=== PATIENT | male | born 1935 | race Caucasian/White ===

== ENCOUNTER 2016-06-30 13:30 | Emergency (ER) | payer MEDICARE, OTHER ==
[2016-06-30 13:43] VITALS: BP 137/57
--- NOTE | 2016-06-30 14:03 | ED ---
Kenny Chung Janilya, scribed for Kenia Ogden MD on 06/30/16 at 1403 . Progress - Progress Note Progress Note: A 80 y/o male came in to [facility] c/o possible stroke. Pt states he was delirious and clammy. In addition, he states he had a vertigo and heaviness on chest last night. Pt states he feels completely normal today. PMHx PE, HTN, hyperlipidemia. PE: normal NIH stroke scale: 0 Please see note from Jonathan which also reports some expressive aphasia Course/Dx - Diagnoses Provider Diagnoses: TIA (transient ischemic attack) The documentation as recorded by the Kenny mackey Janilya accurately reflects the service I personally performed and the decisions made by me, Kenia Ogden MD.
--- NOTE | 2016-06-30 14:12 | RAD ---
INDICATION: Vertigo COMPARISON: CT brain May 22, 2003 TECHNIQUE: Axial source images were obtained from the thoracic inlet to the hemidiaphragms. Coronal and sagittal reconstructed images were acquired. The visualized neck to include the thyroid appear normal. Chest wall: There are no acute abnormalities of the bony thorax or chest wall. There is no supraclavicular, infraclavicular, or axillary lymphadenopathy. Lungs : There are no pulmonary parenchymal masses or infiltrates. The pulmonary interstitium appears normal. There are no endobronchial lesions. Cardiomediastinal structures: The heart is normal in size. There is no pericardial effusion. There is no evidence of aortic aneurysm or dissection. The pulmonary vessels appear normal. There is no mediastinal or hilar adenopathy. The esophagus appears normal. Pleura : There are no pleural-based masses or effusions. Other: There are no acute or significant CT findings of the visualized upper abdomen. IMPRESSION: NEGATIVE EXAMINATION.
[2016-06-30 14:33] LABS: Hematocrit 38 % (42-52); Hemoglobin 13.2 g/dl (14.0-18.0); Mean Corpuscular HGB Conc 34 g/dl (31-36); Mean Corpuscular Hemoglobin 33 pg (27-31); Mean Corpuscular Volume 96 fL (80-94); Mean Platelet Volume 7 um3 (7.4-10.4); Red Cell Distribution Width 14 % (10.5-15); White Blood Count 4.4 10^3/ul (3.5-10.8)
[2016-06-30 14:59] LABS: Albumin 4.5 g/dL (3.2-5.2); BUN/Creatinine Ratio 15.8 (8-20); Calcium 9.7 mg/dL (8.6-10.3); EGFR African American 91.6 (>60); EGFR Non-African American 71.3 (>60); Potassium 4.2 mmol/L (3.5-5.0); Total Bilirubin 1.2 mg/dL (0.2-1.0); Total Protein 6.5 g/dL (6.4-8.9)
--- NOTE | 2016-06-30 21:04 | ED ---
Baylee Chung Michael, scribed for Matt Ewing MD on 06/30/16 at 1623 . Neurological HPI - HPI Summary HPI Summary: 80 y/o male comes to the ED presenting with 10 minutes of confusion while talking to his son on the phone that occurred 2 days ago. The pt was able to speak to his after the phone call with no confusion, but he did experience fatigue. The pt also c/o two episodes of dizziness after the confusion episode. He has had no symptoms since the initial onset. The pt denies syncope, numbness , paresthesia, ear pain, visual changes, CP, jaw pain, and slurred speech. The pt was supposed to have an appointment with Dr. Castillo today, but he was referred to the ED my Dr. Castillo. The PMHx is significant for DVT, PE, and CAD. - History of Current Complaint Chief Complaint: EDNeurologicalDeficit Stated Complaint: STROKE LIKE SYMPTOMS Time Seen by Provider: 06/30/16 15:22 Hx Obtained From: Patient, Medical Records Onset/Duration: Sudden Onset, Started days ago, Resolved Timing: Intermittent Episodes Lasting: - 10 minutes Onset Severity: Moderate Current Severity: None Pain Intensity: 0 Pain Scale Used: 0-10 Numeric Character: Confusion Aggravating: Nothing Alleviating: Spontanious Resolution Associated Signs and Symptoms: Positive: Negative - syncope, numbness, paresthesia, ear pain, visual changes, CP, jaw pain, and slurred speech., Confusion - fatigue., Dizziness - Additional Pertinent History Primary Care Physician: [id number] - Allergy/Home Medications Allergies/Adverse Reactions: Allergies Allergy/AdvReac Type Severity Reaction Status Date / Time No Known Allergies Allergy Verified 06/29/15 11:06 PMH/Surg Hx/FS Hx/Imm Hx Endocrine/Hematology History: Reports: Hx Anemia - LYMPHOMA, Other Endocrine/ Hematological Disorders - [place] Disease status post chemotherapy Cardiovascular History: Reports: Hx Angina, Hx Coronary Artery Disease - CARDIAC STENT, Hx Deep Vein Thrombosis, Hx Hypertension, Other Cardiovascular Problems/Disorders - per pt hx mitral valve prolapse Respiratory History: Reports: Hx Pulmonary Embolism, Hx Sleep Apnea, Other Respiratory Problems/Disorders GI History: Denies: Other GI Disorders Musculoskeletal History: Reports: Hx Arthritis - HANDS Sensory History: Reports: Hx Cataracts - ROSALINA, Hx Contacts or Glasses, Hx Hearing Aid Opthamlomology History: Reports: Hx Cataracts - ROSALINA, Hx Contacts or Glasses Neurological History: Reports: Other Neuro Impairments/Disorders - on prolactin and testosterone ? 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,cardiac stent Hx Chemotherapy: Yes - 08/2006 last dose - Surgical History Surgery Procedure, Year, and Place: Squamous Cell Carcinoma Removal; Nasal Septal Repair Hx Anesthesia Reactions: No Infectious Disease History: Denies: Traveled Outside the [place] in Last 30 Days - Family History Known Family History: Positive: Cardiac Disease - Social History Occupation: Retired Lives: With Family Alcohol Use: Rare Hx Substance Use: No Substance Use Type: Reports: None Hx Tobacco Use: Yes Smoking Status (MU): Former Smoker Type: Cigarettes Amount Used/How Often: 2 PACKS A DAY Have You Smoked in the Last Year: No Review of Systems Positive: Fatigue. Negative: Fever Negative: Blurred Vision Negative: Ear Ache Negative: Chest Pain Neurological: Other - confusion. dizziness. Negative: Paresthesia, Numbness, Syncope, Slurred Speech All Other Systems Reviewed And Are Negative: Yes Physical Exam - Summary Physical Exam Summary: Normal Physical General: Comfortable, pleasant, alert, no distress HEENT: Moist mucosa Neck: soft, supple, no adenopathy, no edema, no carotid bruits Heart: S1, S2, RRR, no murmurs, rubs, or gallops Lungs: Clear to auscultation, breathing comfortable, no wheezes or rales Abdominal: Soft, flat, nontender Extremities: No edema, no calf tenderness Neuro: Alert and oriented x 3 Psych: Logical, coherent NML Neuro Exam Cranial nerves 3-12 intact, negative pronator drift, finger to nose intact, heel to king intact, Triage Information Reviewed: Yes Vital Signs On Initial Exam: Initial Vitals Temp Pulse Resp BP Pulse Ox 97.8 F 71 18 137/57 97 06/30/16 13:38 06/30/16 13:38 06/30/16 13:38 06/30/16 13:38 06/30/16 13:38 Vital Signs Reviewed: Yes Diagnostics - Vital Signs Vital Signs Temp Pulse Resp BP Pulse Ox 06/30/16 15:18 58 18 93 06/30/16 13:38 97.8 F 71 18 137/57 97 - Laboratory Lab Results: Lab Results 06/30/16 06/30/16 06/30/16 Range/Units 14:18 14:18 14:18 WBC 4.4 (3.5-10.8) 10^3/ul RBC 4.00 (4.0-5.4) 10^6/ul Hgb 13.2 L (14.0-18.0) g/dl Hct 38 L (42-52) % MCV 96 H (80-94) fL MCH 33 H (27-31) pg MCHC 34 (31-36) g/dl RDW 14 (10.5-15) % Plt Count 133 L (150-450) 10^3/ul MPV 7 L (7.4-10.4) um3 Neut % (Auto) 75.1 (38-83) % Lymph % (Auto) 3.5 L (25-47) % [place] % (Auto) 18.2 H (1-9) % Eos % (Auto) 2.5 (0-6) % Baso % (Auto) 0.7 (0-2) % Absolute Neuts (auto) 3.3 (1.5-7.7) 10^3/ul Absolute Lymphs (auto) 0.2 L (1.0-4.8) 10^3/ul Absolute Monos (auto) 0.8 (0-0.8) 10^3/ul Absolute Eos (auto) 0.1 (0-0.6) 10^3/ul Absolute Basos (auto) 0 (0-0.2) 10^3/ul Absolute Nucleated RBC 0 10^3/ul Nucleated RBC % 0 INR (Anticoag Therapy) 1.65 H (0.89-1.11) Sodium 140 (133-145) mmol/L Potassium 4.2 (3.5-5.0) mmol/L Chloride 106 (101-111) mmol/L Carbon Dioxide 28 (22-32) mmol/L Anion Gap 6 (2-11) mmol/L BUN 16 (6-24) mg/dL Creatinine 1.01 (0.67-1.17) mg/dL Est GFR ( Amer) 91.6 (>60) Est GFR (Non-Af Amer) 71.3 (>60) BUN/Creatinine Ratio 15.8 (8-20) Glucose 101 H (70-100) mg/dL Lactic Acid (0.5-2.0) mmol/L Calcium 9.7 (8.6-10.3) mg/dL Total Bilirubin 1.20 H (0.2-1.0) mg/dL AST 15 (13-39) U/L ALT 14 (7-52) U/L Alkaline Phosphatase 74 (34-104) U/L Troponin I 0.00 (<0.04) ng/mL Total Protein 6.5 (6.4-8.9) g/dL Albumin 4.5 (3.2-5.2) g/dL Globulin 2.0 (2-4) g/dL Albumin/Globulin Ratio 2.3 (1-3) // Range/Units 14:18 WBC (3.5-10.8) 10^3/ul RBC (4.0-5.4) 10^6/ul Hgb (14.0-18.0) g/dl Hct (42-52) % MCV (80-94) fL MCH (27-31) pg MCHC (31-36) g/dl RDW (10.5-15) % Plt Count (150-450) 10^3/ul MPV (7.4-10.4) um3 Neut % (Auto) (38-83) % Lymph % (Auto) (25-47) % [place] % (Auto) (1-9) % Eos % (Auto) (0-6) % Baso % (Auto) (0-2) % Absolute Neuts (auto) (1.5-7.7) 10^3/ul Absolute Lymphs (auto) (1.0-4.8) 10^3/ul Absolute Monos (auto) (0-0.8) 10^3/ul Absolute Eos (auto) (0-0.6) 10^3/ul Absolute Basos (auto) (0-0.2) 10^3/ul Absolute Nucleated RBC 10^3/ul Nucleated RBC % INR (Anticoag Therapy) (0.89-1.11) Sodium (133-145) mmol/L Potassium (3.5-5.0) mmol/L Chloride (101-111) mmol/L Carbon Dioxide (22-32) mmol/L Anion Gap (2-11) mmol/L BUN (6-24) mg/dL Creatinine (0.67-1.17) mg/dL Est GFR ( Amer) (>60) Est GFR (Non-Af Amer) (>60) BUN/Creatinine Ratio (8-20) Glucose (70-100) mg/dL Lactic Acid 1.5 (0.5-2.0) mmol/L Calcium (8.6-10.3) mg/dL Total Bilirubin (0.2-1.0) mg/dL AST (13-39) U/L ALT (7-52) U/L Alkaline Phosphatase (34-104) U/L Troponin I (<0.04) ng/mL Total Protein (6.4-8.9) g/dL Albumin (3.2-5.2) g/dL Globulin (2-4) g/dL Albumin/Globulin Ratio (1-3) Result Diagrams: 06/30/16 14:18 06/30/16 14:18 Lab Statement: Any lab studies that have been ordered have been reviewed, and results considered in the medical decision making process. - CT Brain CT CT Interpretation: No Acute Changes CT Interpretation Completed By: Radiologist - EKG EKG EKG Rhythm: Sinus Rhythm EKG Interpretation: no st changes Course/Dx - Course Course Of Treatment: Consulted Dr. Truong at [phone]- Dr. Truong is not accepting new pt at this time. Reviewed case and option to follow up with PCP to further workup out patient. Assessment/Plan: 2 days ago experienced 10 mins of confusion and sounded like it was a lined with global neurologic type symptom, not focal. He had no episodes since and he hadnt eaten anything for 6 hours. Now presentation is completely benign and neurological exam in intact. His CT is normal with no signs of bleeding and in fact Xarelto would help prevent ischemic stroke. Unlikely this was CVA however if this does represent TIA is ABC two score is one. I believe further work up can be done outpatient and MRI, MRA, and echocardiogram may be done. Cardiac etiology was considered but he had no cardiac ischemic equivalents and cardiac work up is normal. He agrees to return for any other episodes and will follow up with Dr. Adorno. - Diagnoses Provider Diagnoses: Confusion and disorientation Discharge - Discharge Plan Condition: Good Disposition: HOME Patient Education Materials: Altered Mental Status (ED) Referrals: Narinder Adorno MD [Primary Care Provider] - The documentation as recorded by the Baylee mackey Michael accurately reflects the service I personally performed and the decisions made by me, Matt Ewing MD.
== END 2016-06-30 17:21 | disposition home or self-care (01) ==
LOC: ED 13:30
DX: G45.9 Transient cerebral ischemic attack, unspecified (principal); R53.83 Other fatigue; Z87.891 Personal history of nicotine dependence
CPT/HCPCS: 36415; 70450; 80053; 83605; 84484; 85025; 85610; 93005; 99282